=== PATIENT | female | born 1970 | race African-American/Black ===

== ENCOUNTER 2020-08-24 05:14 | Inpatient (IN) | payer BC, OTHER ==
[2020-08-22 13:45] VITALS: BMI 24.7
[2020-08-24] MEDS ORDERED: MIDAZOLAM HCL 2 MG/2 ML SINGLE DOSE VIAL ONE ×2 (07:27)
[2020-08-24] MEDS ORDERED: BUPIVACAINE LIPOSOME/PF (EXPAREL) 266 MG/20 ML VIAL ONE (07:28)
[2020-08-24] MEDS ORDERED: BUPIVACAINE HCL/PF 0.25% (2.5MG/ML) 10 ML VIAL ONE (07:28)
[2020-08-24] MEDS ORDERED: CEFAZOLIN 2 GM/D5W 2 GM/50 ML ML IVPB ONE (07:54)
[2020-08-24] MEDS ORDERED: ceFAZolin SODIUM 1 GM VIAL IVPB ONE (08:21)
[2020-08-24] MEDS ORDERED: ONDANSETRON 4 MG/2 ML VIAL IVPUSH PRN (09:37)
[2020-08-24] MEDS ORDERED: ACETAMINOPHEN 325 MG TABLET (FP) PO PRN (10:12)
[2020-08-24] MEDS ORDERED: IBUPROFEN 800 MG/8 ML IJ IVPB PRN (10:12)
[2020-08-24] MEDS ORDERED: oxyCODONE HCL 5 MG TABLET PO PRN (10:12)
[2020-08-24] MEDS: LACTATED RINGERS SOLUTION 1,000 ML IV SCH ×2 (11:35→23:53)
[2020-08-24] MEDS ORDERED: ACETAMINOPHEN 1000 MG/100 ML VIAL (NON FORMULARY) IVPB ONE (12:41)
[2020-08-24] MEDS ORDERED: PROMETHAZINE HCL 25 MG/1 ML VIAL IVPB PRN (12:42)
[2020-08-24] MEDS ORDERED: ACETAMINOPHEN INJECTION 100 ML IVPB ONE (13:19)
[2020-08-24] MEDS ORDERED: ceFAZolin SODIUM 1 GM VIAL ONE (14:10)
[2020-08-24] MEDS ORDERED: PROMETHAZINE HCL 25 MG/1 ML VIAL ONE (14:22)
[2020-08-24] MEDS ORDERED: oxyCODONE HCL 5 MG TABLET ONE (14:29)
[2020-08-24] MEDS: oxyCODONE HCL 5 MG TABLET PO PRN (14:33)
[2020-08-24] MEDS ORDERED: ceFAZolin 2 GRAM PREMIX BAG IVPB ONE (16:30)
[2020-08-24] MEDS: CEFAZOLIN 2 GM/D5W 2 GM/50 ML ML IVPB SCH (20:42)
[2020-08-25] MEDS: CEFAZOLIN 2 GM/D5W 2 GM/50 ML ML IVPB SCH (01:50)
[2020-08-25] MEDS: oxyCODONE HCL 5 MG TABLET PO PRN ×4 (06:20→22:07)
[2020-08-25 09:18] LABS: BASO % 0.5 % (0-2.0); EOS % 0.7 % (0-4.5); HEMATOCRIT 33.9 % (32.4-45.2); HEMOGLOBIN 11.2 GM/dL (10.7-15.3); LYMPH % 21.1 % (8-40); MCH 32.2 pg (25.7-33.7); MCHC 33.2 g/dl (32.0-36.0); MEAN PLT VOLUME 7.4 fl (7.5-11.1); MONO % 9.8 % (3.8-10.2); NEUT % 67.9 % (42.8-82.8); PLATELET COUNT 309 10^3/uL (134-434); RBC 3.49 M/mm3 (3.60-5.2); RDW 13.2 % (11.6-15.6); WHITE BLOOD COUNT 6.2 K/mm3 (4.0-10.0)
[2020-08-25] MEDS: LACTATED RINGERS SOLUTION 1,000 ML IV SCH ×2 (13:42→14:44)
[2020-08-26] MEDS: oxyCODONE HCL 5 MG TABLET PO PRN (04:46)
[2020-08-26 06:35] VITALS: BP 104/67; PULSE 68; TEMP 99
== END 2020-08-26 13:38 | disposition home or self-care (01) | DRG 743 ==
LOC: J2C 05:14 → J8W 16:57
PROVIDERS: ADMIT Obstetrics & Gynecology; ATTEND Obstetrics & Gynecology
PROC: 0UT70ZZ Resection of Bilateral Fallopian Tubes, Open Approach (ICD-10-PCS; 2020-08-24)
PROC: 0UT20ZZ Resection of Bilateral Ovaries, Open Approach (ICD-10-PCS; 2020-08-24)
PROC: 0UT90ZL Resection of Uterus, Supracervical, Open Approach (ICD-10-PCS; principal; 2020-08-24 08:00)
DX: D25.9 Leiomyoma of uterus, unspecified (principal); R10.2 Pelvic and perineal pain
CPT/HCPCS: 36415; 84703; 85025; 86850; 86900; 86901; 88307-TC; 94760; J0131